=== PATIENT | male | born 1960 | race Caucasian/White ===

== ENCOUNTER → 2020-07-26 08:08 | Outpatient (BNVA) | payer OTHER, SELFPAY | PROVIDERS: Visit Provider Specialist | DX: G62.9 Polyneuropathy, unspecified (principal); G56.12 Other lesions of median nerve, left upper limb; Z89.022 Acquired absence of left finger(s) | CPT/HCPCS: 95908 ==

== ENCOUNTER → 2021-02-11 09:27 | Outpatient (BNVA) | payer OTHER, SELFPAY | PROVIDERS: Visit Provider Nurse Practitioner | DX: G56.02 Carpal tunnel syndrome, left upper limb (principal); R29.90 Unspecified symptoms and signs involving the nervous system; Z89.022 Acquired absence of left finger(s) | CPT/HCPCS: 99204 ==

== ENCOUNTER 2021-03-02 12:28 | Outpatient (CLI) | payer OTHER, SELFPAY ==
--- NOTE | 2021-03-02 13:00 | MR_ITS ---
WS: [id number] MRI BRAIN WITHOUT CONTRAST HISTORY: R29.898 - Other symptoms and signs involving the musculoskeletal system. COMPARISON: None available. TECHNIQUE: Diffusion imaging, multiplanar T1, T2 and FLAIR imaging obtained. No evidence for acute infarct or hemorrhage. Bryant-white matter differentiation is normal. No remote or acute infarcts are volume loss. Ventricles and extra-axial spaces are normal. No inferior displacement of cerebellar tonsils. The sella turcica and pituitary gland are unremarkabl e. Dural venous sinuses and [place] demonstrate no abnormality on this unenhanced studies. Paranasal sinuses: Small mucous retention cyst in the RIGHT maxillary sinus. Mastoid air cells: Normal. Calvarium and scalp: Intact. MR/MR head wo con* [id number] IMPRESSION: 1. Unremarkable noncontrast MRI brain. 2. No significant white matter abnormality.
--- NOTE | 2021-03-02 13:45 | MR_ITS ---
WS: [id number] MRI CERVICAL SPINE NONCONTRAST HISTORY: R29.898 - Other symptoms and signs involving the musculoskeletal system. COMPARISON: None available. Technique: Multiplanar, multisequence noncontrast imaging of the cervical spine. Straightening of the normal cervical lordosis. There are extensive hardware in the cervical spine ext ending but appears to be from C5 to C7. Bony fusion across the C4-5, C5-6 and C6-7 disc spaces. Signal within the cervical cord is normal. Visualized posterior fossa is unremarkable. Craniocervical junction, C1 and C2 relationship, odontoid process and soft tissues are normal. C2-C3: Moderate osteophytic ridging. No stenosis. C3-C4: Severe annular disc bulging and osteophytic ridging. Moderate size central and bilateral angel inal disc osteophyte complexes. Disc and osteophyte disease causing significant central and bilateral foraminal stenosis. Posterior facet joint arthritis is also contributing to the stenosis. C4-C5: Osteophytic ridging with a central osteophyte causing mild compression upon the thecal sac. Mi nimal central and mild bilateral foraminal stenosis. C5-C6: Diffuse osteophytic ridging and facet arthritis. Mild bilateral foraminal stenosis. C6-C7: Mild osteophytic ridging with mild foraminal narrowing. C7-T1: Annular disc bulging with small foraminal disc osteophytes. Mild to moderate foraminal narrowi ng. Paraspinal soft tissue are normal. MR/MR cervical spin wo con* [id number] IMPRESSION: 1. 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 2. Extensive anterior cervical fusion and interbody spacers extends from the C 4-C7 levels. 3. Mild central and bilateral foraminal stenosis at C4-5. 4. Mild to moderate foraminal narrowing at C7-T1 and mild at C5-6.
== END 2021-03-02 12:29 | disposition home or self-care (01) ==
PROVIDERS: PCP Family Medicine; Visit Provider Nurse Practitioner
DX: R29.898 Other symptoms and signs involving the musculoskeletal system (principal); R53.1 Weakness; M48.02 Spinal stenosis, cervical region; M25.78 Osteophyte, vertebrae; M47.812 Spondylosis without myelopathy or radiculopathy, cervical region; M43.22 Fusion of spine, cervical region
CPT/HCPCS: 70551; 72141

== ENCOUNTER → 2021-03-09 12:46 | Outpatient (BNVA) | payer OTHER, SELFPAY | PROVIDERS: PCP Family Medicine; Visit Provider Nurse Practitioner | DX: G56.12 Other lesions of median nerve, left upper limb (principal); M50.10 Cervical disc disorder with radiculopathy, unspecified cervical region; M47.22 Other spondylosis with radiculopathy, cervical region | CPT/HCPCS: 99213; 99214 ==

== ENCOUNTER → 2024-09-24 08:03 | Outpatient (BNVA) | payer MEDICARE, OTHER, SELFPAY | PROVIDERS: PCP Family Medicine; Visit Provider Podiatrist Foot & Ankle Surgery | DX: L60.8 Other nail disorders (principal) | CPT/HCPCS: 99213 ==